=== PATIENT | female | born 1930 | race Caucasian/White ===

== ENCOUNTER 2016-11-06 10:54 | Emergency (ER) | payer OTHER, BC ==
[~2016-11-06] VITALS: Ht 152.4 cm; Wt 65.7 kg
[~2016-11-06 10:54] MED LIST: PRED1SUS3 OPR
[2016-11-06 10:59] VITALS: TEMP 36.6; Ht 152.4 cm; Wt 65.7 kg
--- NOTE | 2016-11-06 11:17 | EMERGENCY ROOM VISIT NOTE ---
History Report prepared by Adriel: Willow Andrews Under the Supervision of: Dr. Igor Moser M.D. First contact with patient: 11:08 Chief Complaint: ABDOMINAL PAIN Stated Complaint: PAIN IN UPPER ABDOMEN AREA History of Present Illness The patient is a 86 year old female who presents to the Emergency Room with complaints of improved right upper quadrant abdominal pain that began about an hour ago. Her daughter states that the patient was initially doubled over in pain. Since then, she has noticed a significant improvement in her pain. She reports belching a few times since her pain began. She feels that she may have had similar pain in the past, but not recently. The patient has a history of a hysterectomy. She has been moving her bowels and urinating normally. Denies leg pain or other complaints. Source of History: patient, family (daughter) Onset: 1 hour ago Position: abdomen (RUQ) Timing: other (improved) Note: Other symptoms: belching Review of Systems All systems have been listed, reviewed, and are negative other than those previously mentioned. Please see Additional Medical History Sheet. Past Medical & Surgical Medical Problems: (1) Hypertension Surgical Problems: (1) H/O: hysterectomy Family History Omitted secondary to age Social History Smoking Status: Never Smoker Marital Status: Housing Status: lives with family Occupation Status: retired Current/Historical Medications No Active Prescriptions or Reported Meds Allergies Coded Allergies: No Known Allergies (Unverified , 11/06/16) Physical Exam Vital Signs Date Time Temp Pulse Resp B/P Pulse Ox O2 Delivery O2 Flow Rate FiO2 11/06/16 12:57 71 20 139/83 96 Room Air 11/06/16 10:59 36.6 80 18 167/82 96 Room Air Physical Exam GENERAL: Patient awake, alert, oriented x 3. Patient follows commands. Patient does not appear toxic. Patient is adequately hydrated and well- nourished. SKIN: No erythema, pallor, cyanosis or rash HEENT: Normal head, pupils equal, reactive to light and accommodation. LUNGS: Clear to auscultation. No wheezes, no rales, no rhonchi. HEART: No murmurs. No gallops. No rubs ABDOMEN: No masses, no rebound, no hepatomegaly or splenomegaly. Hyperactive bowel sounds. Vague right upper quadrant tenderness. EXTREMITIES: No signs of trauma. No pedal or pretibial edema. No calf or thigh tenderness. NEUROLOGIC: Cranial nerves II-XII within normal limits. No gross motor sensory function deficits. Medical Decision & Procedures ER Provider Diagnostic Interpretation: Radiology results as stated below per my review and radiologist interpretation: KUB CLINICAL HISTORY: Right upper quadrant abdominal pain. FINDINGS: An AP supine abdominal radiograph is obtained. No prior studies are available for comparison at the time of dictation. There is a nonobstructed abdominal bowel gas pattern. There is moderate constipation as well as rectosigmoid fecal impaction. No evidence of intraperitoneal free air is seen on this supine view. Numerous surgical clips are present in the pelvis. There is advanced atherosclerotic calcification of the abdominal aorta. The skeletal structures are osteopenic. Advanced lumbosacral spondylosis and scoliosis are observed. The bony pelvis appears intact. IMPRESSION: Nonobstructed abdominal bowel gas pattern noting moderate constipation and rectosigmoid fecal impaction. Electronically signed by: Scott Domínguez M.D. 11/06/2016 12:18 PM Dictated Date/Time: 11/06/2016 12:17 PM Laboratory Results 11/06/16 11:33 Red Blood Count 4.21, Mean Corpuscular Volume 87.2, Mean Corpuscular Hemoglobin 30.6, Mean Corpuscular Hemoglobin Concent 35.1, Mean Platelet Volume 11.8, Neutrophils (%) (Auto) 79.1, Lymphocytes (%) (Auto) 12.5, Monocytes (%) (Auto) 7.2, Eosinophils (%) (Auto) 0.5, Basophils (%) (Auto) 0.5, Neutrophils # (Auto) 3.41, Lymphocytes # (Auto) 0.54, Monocytes # (Auto) 0.31, Eosinophils # (Auto) 0.02, Basophils # (Auto) 0.02 11/06/16 11:33 Test 11/06/16 11:33 11/06/16 13:45 White Blood Count 4.31 K/uL (4.8-10.8) Red Blood Count 4.21 M/uL (4.2-5.4) Hemoglobin 12.9 g/dL (12.0-16.0) Hematocrit 36.7 % (37-47) Mean Corpuscular Volume 87.2 fL (80-100) Mean Corpuscular Hemoglobin 30.6 pg (25-34) Mean Corpuscular Hemoglobin Concent 35.1 g/dl (32-36) Platelet Count 149 K/uL (130-400) Mean Platelet Volume 11.8 fL (7.4-10.4) Neutrophils (%) (Auto) 79.1 % Lymphocytes (%) (Auto) 12.5 % Monocytes (%) (Auto) 7.2 % Eosinophils (%) (Auto) 0.5 % Basophils (%) (Auto) 0.5 % Neutrophils # (Auto) 3.41 K/uL (1.4-6.5) Lymphocytes # (Auto) 0.54 K/uL (1.2-3.4) Monocytes # (Auto) 0.31 K/uL (0.11-0.59) Eosinophils # (Auto) 0.02 K/uL (0-0.5) Basophils # (Auto) 0.02 K/uL (0-0.2) RDW Standard Deviation 42.3 fL (36.4-46.3) RDW Coefficient of Variation 13.2 % (11.5-14.5) Immature Granulocyte % (Auto) 0.2 % Immature Granulocyte # (Auto) 0.01 K/uL (0.00-0.02) Anion Gap 5.0 mmol/L (3-11) Est Creatinine Clear Calc Drug Dose 38.7 ml/min Estimated GFR () 70.9 Estimated GFR (Non- 61.2 BUN/Creatinine Ratio 31.4 (10-20) Calcium Level 9.6 mg/dl (8.5-10.1) Total Bilirubin 1.1 mg/dl (0.2-1) Aspartate Amino Transf (AST/SGOT) 100 U/L (15-37) Alanine Aminotransferase (ALT/SGPT) 59 U/L (12-78) Alkaline Phosphatase 171 U/L (45-117) Total Protein 6.9 gm/dl (6.4-8.2) Albumin 3.8 gm/dl (3.4-5.0) Globulin 3.1 gm/dl (2.5-4.0) Albumin/Globulin Ratio 1.2 (0.9-2) Lipase 332 U/L (73-393) Urine Color YELLOW Urine Appearance CLEAR (CLEAR) Urine pH 6.5 (4.5-7.5) Urine Specific [place] 1.010 (1.000-1.030) Urine Protein NEG (NEG) Urine Glucose (UA) NEG (NEG) Urine Ketones NEG (NEG) Urine Occult Blood TRACE (NEG) Urine Nitrite NEG (NEG) Urine Bilirubin NEG (NEG) Urine Urobilinogen NEG (NEG) Urine Leukocyte Esterase NEG (NEG) Urine WBC (Auto) 0 /hpf (0-5) Urine RBC (Auto) 0-4 /hpf (0-4) Urine Hyaline Casts (Auto) 0 /lpf (0-5) Urine Epithelial Cells (Auto) 0-5 /lpf (0-5) Urine Bacteria (Auto) NEG (NEG) Laboratory results as stated above per my review. Medications Administered Medications (Trade) Dose Ordered Sig/Eddy Route Start Time Stop Time Status Last Admin Dose Admin Polyethylene (Miralax Powder Packet) 17 gm NOW ONCE PO 11/06/16 13:45 11/06/16 13:46 DC 11/06/16 14:07 17 GM ED Course 1107: Past medical records reviewed. The patient was evaluated in room C3. A complete history and physical examination was performed. 1332: I reassessed the patient. She was feeling much better. 1345: Ordered polyethylene 17 gm PO. 1408: Upon reevaluation, the patient appeared to have improvement of her symptoms. I discussed today's findings with the patient. She verbalized agreement of the treatment plan. The patient was discharged home. Medical Decision Nurses notes reviewed. Medical history sheet reviewed. Differential diagnosis includes but is not limited to: intestinal spasm, pancreatitis, peptic/gastric ulcer disease, gastroenteritis, cholelithiasis, cholecystitis. Multiple labs, urinalysis and imaging were obtained. Please see above. The patient has increased gas secondary to constipation. The initial clean-catch urine was contaminated and therefore a second catheterized urine was obtained which was clean. The patient was given 1 dose of MiraLAX. I do not believe she requires any further intervention. At time of discharge the patient felt significantly better. Impression Primary Impression: Constipation Scribe Attestation The scribe's documentation has been prepared under my direction and personally reviewed by me in its entirety. I confirm that the note above accurately reflects all work, treatment, procedures, and medical decision making performed by me. Departure Information Dispostion Home / Self-Care Prescriptions No Active Prescriptions or Reported Meds Referrals Raad Monge MD (PCP) Patient Instructions Constipation, My [facility] Additional Instructions Follow-up with your family physician in 2-3 days if pain is not completely resolved. Return here sooner if pain is getting worse.
[2016-11-06 11:54] LABS: BASO % 0.5 %; BASO ABS # 0.02 K/uL (0-0.2); COMPLETE YES; EOS % 0.5 %; HEMATOCRIT 36.7 % (37-47); IG% 0.2 %; LYMPH % 12.5 %; LYMPH ABS # 0.54 K/uL (1.2-3.4); MEAN CELL VOLUME 87.2 fL (80-100); MEAN CORPUSCULAR HEMOGLOBIN 30.6 pg (25-34); MEAN CORPUSCULAR HGB CONC 35.1 g/dl (32-36); MEAN PLATELET VOLUME 11.8 fL (7.4-10.4); MONO % 7.2 %; NEUT % 79.1 %; PLATELET COUNT 149 K/uL (130-400); RED BLOOD COUNT 4.21 M/uL (4.2-5.4); WHITE BLOOD COUNT 4.31 K/uL (4.8-10.8)
[2016-11-06 11:59] LABS: URINE APPEARANCE CLEAR (CLEAR); URINE BILIRUBIN NEG (NEG); URINE COLOR YELLOW; URINE EPITHELIAL CELL AUTO >30 /lpf (0-5); URINE NITRITE NEG (NEG); URINE PH 5.5 (4.5-7.5); URINE SPECIFIC GRAVITY 1.018 (1.000-1.030); UROBILINOGEN NEG (NEG); ZZUR CULT IF INDIC CLEAN CATCH NO
[2016-11-06 12:02] LABS: MANUAL MICROSCOPIC REQUIRED? NO; REVIEW REQ? NO
--- NOTE | 2016-11-06 12:20 | DIAGNOSTIC IMAGING REPORT ---
KUB CLINICAL HISTORY: Right upper quadrant abdominal pain. FINDINGS: An AP supine abdominal radiograph is obtained. No prior studies are available for comparison at the time of dictation. There is a nonobstructed abdominal bowel gas pattern. There is moderate constipation as well as rectosigmoid fecal impaction. No evidence of intraperitoneal free air is seen on this supine view. Numerous surgical clips are present in the pelvis. There is advanced atherosclerotic calcification of the abdominal aorta. The skeletal structures are osteopenic. Advanced lumbosacral spondylosis and scoliosis are observed. The bony pelvis appears intact. IMPRESSION: Nonobstructed abdominal bowel gas pattern noting moderate constipation and rectosigmoid fecal impaction. Electronically signed by: Scott Domínguez M.D. 11/06/2016 12:18 PM Dictated Date/Time: 11/06/2016 12:17 PM
[2016-11-06 12:29] LABS: BUN/CREATININE RATIO 31.4 (10-20); CALCIUM 9.6 mg/dl (8.5-10.1); CREATININE 0.85 mg/dl (0.60-1.20); POTASSIUM 3.7 mmol/L (3.5-5.1)
[2016-11-06 12:32] LABS: ALB/GLOB RATIO 1.2 (0.9-2)
[2016-11-06] MEDS ORDERED: POLYETHYLENE (MIRALAX) 17 GM PACK PO ONE (13:45)
[2016-11-06 14:05] LABS: URINE APPEARANCE CLEAR (CLEAR); URINE BILIRUBIN NEG (NEG); URINE COLOR YELLOW; URINE EPITHELIAL CELL AUTO 0-5 /lpf (0-5); URINE NITRITE NEG (NEG); URINE PH 6.5 (4.5-7.5); UROBILINOGEN NEG (NEG); ZZURINE CULT IF INDIC CATH NO
[2016-11-06 14:07] LABS: MANUAL MICROSCOPIC REQUIRED? NO; REVIEW REQ? NO
[2016-11-06 14:55] VITALS: BP 144/72; PULSE 69; O2SAT 96
== END 2016-11-06 14:55 | disposition home or self-care (01) ==
LOC: C.EDB 10:55 → C.EDC 14:55
DX: K59.00 Constipation, unspecified (principal); I10 Essential (primary) hypertension; Z90.710 Acquired absence of both cervix and uterus

== ENCOUNTER 2017-07-09 10:21 | Inpatient (IN) | payer OTHER, BC ==
[~2017-07-09] VITALS: Ht 160 cm; Wt 58.7 kg
[2017-07-09] MEDS ORDERED: SODIUM CHLORIDE 0.9% 1000ML 1,000 ML IV STA (10:30)
--- NOTE | 2017-07-09 10:57 | DIAGNOSTIC IMAGING REPORT ---
CHEST ONE VIEW PORTABLE CLINICAL HISTORY: Weakness COMPARISON STUDY: No previous studies for comparison. FINDINGS: The heart is borderline enlarged. There are low lung volumes. There is interstitial thickening, finding of uncertain chronicity. There is no lobar consolidation. There is a thoracolumbar scoliosis.[ IMPRESSION: Interstitial thickening, finding of uncertain chronicity. This could relate to mild pulmonary vascular congestion, or chronic interstitial lung disease. Electronically signed by: Krish Crane M.D. 07/09/2017 10:55 AM Dictated Date/Time: 07/09/2017 10:55 AM
[2017-07-09] MEDS ORDERED: AMOX500T PO (11:22)
[2017-07-09] MEDS ORDERED: GUAI400T44 PO (11:22)
[2017-07-09 11:36] LABS: BASO % 0.4 %; BASO ABS # 0.02 K/uL (0-0.2); EOS % 1.1 %; EOS ABS # 0.05 K/uL (0-0.5); HEMATOCRIT 31.8 % (37-47); IG# 0.01 K/uL (0.00-0.02); LYMPH % 10.6 %; LYMPH ABS # 0.48 K/uL (1.2-3.4); MEAN CELL VOLUME 87.6 fL (80-100); MEAN CORPUSCULAR HEMOGLOBIN 30.3 pg (25-34); MEAN CORPUSCULAR HGB CONC 34.6 g/dl (32-36); MEAN PLATELET VOLUME 12.3 fL (7.4-10.4); MONO % 6.9 %; MONO ABS # 0.31 K/uL (0.11-0.59); NEUT % 80.8 %; NEUT ABS # 3.65 K/uL (1.4-6.5); PLATELET COUNT 151 K/uL (130-400); RED CELL DISTRIBUTION WIDTH CV 13.4 % (11.5-14.5); RED CELL DISTRIBUTION WIDTH SD 43.1 fL (36.4-46.3); WHITE BLOOD COUNT 4.52 K/uL (4.8-10.8)
[2017-07-09 11:50] LABS: INR 1.1 (0.9-1.1); PTT PATIENT 23.2 SECONDS (21.0-31.0)
[2017-07-09 11:55] LABS: ALBUMIN 3.2 gm/dl (3.4-5.0); ALT/SGPT 20 U/L (12-78); AST/SGOT 19 U/L (15-37); BLOOD UREA NITROGEN 19 mg/dl (7-18); CALCIUM 9.1 mg/dl (8.5-10.1); CARBON DIOXIDE 29 mmol/L (21-32); GLUCOSE 101 mg/dl (70-99); LIPASE 248 U/L (73-393); POTASSIUM 2.9 mmol/L (3.5-5.1); SODIUM 138 mmol/L (136-145)
--- NOTE | 2017-07-09 11:57 | DIAGNOSTIC IMAGING REPORT ---
CT HEAD WITHOUT CONTRAST (CT) CLINICAL HISTORY: No onset weakness COMPARISON STUDY: No previous studies for comparison. TECHNIQUE: Axial CT of the brain is performed from the vertex to the skull base. IV contrast was not administered for this examination. A dose lowering technique was utilized adhering to the principles of ALARA. CT DOSE: 614.27 mGy.cm FINDINGS: No intra or extra-axial mass lesions are visualized. There is no CT evidence of acute cortical infarction. There is no evidence of midline shift. There is no acute hemorrhage. No calvarial fractures are visualized. There are patchy white matter hypodensities likely on a small vessel basis. There is no evidence of pathologic ventricular dilatation. There is no evidence of acute sinusitis IMPRESSION: No acute intracranial findings Electronically signed by: Krish Crane M.D. 07/09/2017 11:56 AM Dictated Date/Time: 07/09/2017 11:55 AM
[2017-07-09 12:06] LABS: ALKALINE PHOSPHATASE 113 U/L (45-117); TOTAL PROTEIN 6.2 gm/dl (6.4-8.2)
[2017-07-09] MEDS ORDERED: LEVAQUIN 500MG / 100ML D5W IV ONE (13:15)
[2017-07-09 13:48] LABS: BASO % 0.5 %; BASO ABS # 0.02 K/uL (0-0.2); EOS % 1.2 %; EOS ABS # 0.05 K/uL (0-0.5); HEMATOCRIT 29.8 % (37-47); HEMOGLOBIN 10.4 g/dL (12.0-16.0); IG# 0.02 K/uL (0.00-0.02); LYMPH % 12.2 %; LYMPH ABS # 0.51 K/uL (1.2-3.4); MEAN CELL VOLUME 87.6 fL (80-100); MEAN CORPUSCULAR HEMOGLOBIN 30.6 pg (25-34); MEAN CORPUSCULAR HGB CONC 34.9 g/dl (32-36); MONO % 6.5 %; MONO ABS # 0.27 K/uL (0.11-0.59); NEUT % 79.1 %; NEUT ABS # 3.31 K/uL (1.4-6.5); PLATELET COUNT 137 K/uL (130-400); RED CELL DISTRIBUTION WIDTH CV 13.5 % (11.5-14.5); WHITE BLOOD COUNT 4.18 K/uL (4.8-10.8)
[2017-07-09 13:57] LABS: INR 1.1 (0.9-1.1); PTT PATIENT 22.1 SECONDS (21.0-31.0)
[2017-07-09] MEDS ORDERED: POTASSIUM CHLORIDE 10 MEQ TABCR PO STA (14:19)
[2017-07-09] MEDS ORDERED: ALUMINUM/MAGNESIUM/SIMETH (MAALOX MAX) 30 ML UDC PO PRN (15:00)
[2017-07-09] MEDS ORDERED: ACETAMINOPHEN 325 MG TAB PO PRN (15:00)
--- NOTE | 2017-07-09 16:00 | NUR ---
A: Patient arrived to room 452-2 at this time via litter from the ED. Patient with severe generalized weakness, max two assist to ambulate to the bed. Patient is extremely ZUNI, oriented times two. No c/o pain, saline lock right hand. Daughter at bedside, code word and fall agreement completed. Oriented to hospital environment, call vasquez within reach; bed alarm on for safety. Will continue to monitor.
--- NOTE | 2017-07-09 16:09 | EMERGENCY ROOM VISIT NOTE ---
History Report prepared by Adriel: Zoran Vargas Under the Supervision of: Dr. Deven Hutchinson D.O. First contact with patient: 10:24 Stated Complaint: weakness History of Present Illness The patient is a 87 year old female who presents to the Emergency Room by EMS with complaints of persistent generalized weakness beginning today. Per EMS, EMS was called by the patient's this morning due to her inability to get around the house. They note that the patient has been on Amoxicillin for the past 2-3 weeks. Family also notes that she has been confused recently. Admit that she has been having a productive cough and that the reason she has been on amoxicillin. Since this started she has been becoming progressively weaker. The patient denies focal weakness, urinary symptoms, chest pain, SOB, abdominal pain, nausea, or vomiting. Patient did have for the past 3 days to loose bowel movements per day. Source of History: patient, EMS Onset: Today Position: other (generalized) Quality: other (weakness) Timing: other (persistent) Associated Symptoms: No fevers, No chest pain, No SOB, No nausea, No vomiting, No abdominal pain, No diarrhea, No urinary symptoms Review of Systems See HPI for pertinent positives & negatives. A total of 10 systems reviewed and were otherwise negative. Past Medical & Surgical Medical Problems: (1) Generalized weakness (2) Hypertension (3) Hypokalemia Surgical Problems: (1) H/O: hysterectomy Family History Omitted secondary to age Social History Smoking Status: Never Smoker Marital Status: Housing Status: lives with family Occupation Status: retired Current/Historical Medications Scheduled Amoxicillin & Pot Clavulanate (Augmentin 500MG), 500 MG PO BID Guaifenesin (Guaifenesin), 1 TAB PO UD Allergies Coded Allergies: No Known Allergies (Unverified , 07/09/17) Physical Exam Vital Signs Date Time Temp Pulse Resp B/P (MAP) Pulse Ox O2 Delivery O2 Flow Rate FiO2 07/09/17 15:33 140/106 07/09/17 15:17 79 30 07/09/17 14:47 80 29 07/09/17 14:31 81 21 156/95 95 Room Air 07/09/17 14:17 84 23 95 07/09/17 14:01 156/95 07/09/17 13:17 74 24 99 07/09/17 13:01 158/83 07/09/17 13:00 74 18 158/83 98 Room Air 07/09/17 12:47 71 25 100 07/09/17 12:17 70 25 96 07/09/17 12:12 142/88 07/09/17 12:08 70 07/09/17 11:26 152/94 07/09/17 11:25 153/87 07/09/17 11:25 71 153/87 96 75 152/94 07/09/17 11:23 157/94 07/09/17 11:21 72 27 07/09/17 10:46 96 Room Air 07/09/17 10:41 36.8 75 20 150/95 96 Room Air 07/09/17 10:35 150/95 Physical Exam GENERAL: Sitting up in bed, alert, well appearing, well-kept, well nourished, no distress, non-toxic EYE EXAM: normal conjunctiva. PERRL and EOM's intact. OROPHARYNX: no exudate, no erythema, lips, buccal mucosa, and tongue normal and mucous membranes are moist NECK: supple, no nuchal rigidity, no adenopathy, non-tender LUNGS: Clear to auscultation. Normal chest wall mechanics HEART: no murmurs, S1 normal and S2 normal ABDOMEN: abdomen soft, non-tender, normo-active bowel sounds, no masses, no rebound or guarding. BACK: Back is symmetrical on inspection and there is no deformity, no midline tenderness, no CVA tenderness. SKIN: no rashes and no bruising UPPER EXTREMITIES: upper extremities are grossly normal. LOWER EXTREMITIES: No pitting edema. NEURO EXAM: Awake, alert, oriented to person, but not place or date. Cranial nerves II-XII intact, normal speech, no weakness of arms, no weakness of legs. No drift. Finger to nose intact. Gross sensation intact. Medical Decision & Procedures ER Provider Diagnostic Interpretation: Radiology results as stated below per my review and the radiologist's interpretation: CT HEAD WITHOUT CONTRAST (CT) FINDINGS: No intra or extra-axial mass lesions are visualized. There is no CT evidence of acute cortical infarction. There is no evidence of midline shift. There is no acute hemorrhage. No calvarial fractures are visualized. There are patchy white matter hypodensities likely on a small vessel basis. There is no evidence of pathologic ventricular dilatation. There is no evidence of acute sinusitis IMPRESSION: No acute intracranial findings Electronically signed by: Krish Crane M.D. 07/09/2017 11:56 AM CHEST ONE VIEW PORTABLE FINDINGS: The heart is borderline enlarged. There are low lung volumes. There is interstitial thickening, finding of uncertain chronicity. There is no lobar consolidation. There is a thoracolumbar scoliosis.[ IMPRESSION: Interstitial thickening, finding of uncertain chronicity. This could relate to mild pulmonary vascular congestion, or chronic interstitial lung disease. Electronically signed by: Krish Crane M.D. 07/09/2017 10:55 AM Laboratory Results 07/09/17 13:37 Red Blood Count 3.40, Mean Corpuscular Volume 87.6, Mean Corpuscular Hemoglobin 30.6, Mean Corpuscular Hemoglobin Concent 34.9, Mean Platelet Volume 12.0, Neutrophils (%) (Auto) 79.1, Lymphocytes (%) (Auto) 12.2, Monocytes (%) (Auto) 6.5, Eosinophils (%) (Auto) 1.2, Basophils (%) (Auto) 0.5, Neutrophils # (Auto) 3.31, Lymphocytes # (Auto) 0.51, Monocytes # (Auto) 0.27, Eosinophils # (Auto) 0.05, Basophils # (Auto) 0.02 07/09/17 11:10 Test 07/09/17 10:30 07/09/17 11:10 07/09/17 11:22 07/09/17 13:37 Anion Gap 4.0 mmol/L (3-11) Est Creatinine Clear Calc Drug Dose 28.7 ml/min Estimated GFR () 51.5 Estimated GFR (Non- 44.5 BUN/Creatinine Ratio 16.9 (10-20) Calcium Level 9.1 mg/dl (8.5-10.1) Total Bilirubin 0.9 mg/dl (0.2-1) Direct Bilirubin 0.2 mg/dl (0-0.2) Aspartate Amino Transf (AST/SGOT) 19 U/L (15-37) Alanine Aminotransferase (ALT/SGPT) 20 U/L (12-78) Alkaline Phosphatase 113 U/L (45-117) Troponin I < 0.015 ng/ml (0-0.045) Total Protein 6.2 gm/dl (6.4-8.2) Albumin 3.2 gm/dl (3.4-5.0) Lipase 248 U/L (73-393) Thyroid Stimulating Hormone (TSH) 2.180 uIu/ml (0.300-4.500) Bedside Glucose 98 mg/dl (70-90) White Blood Count 4.18 K/uL (4.8-10.8) Red Blood Count 3.40 M/uL (4.2-5.4) Hemoglobin 10.4 g/dL (12.0-16.0) Hematocrit 29.8 % (37-47) Mean Corpuscular Volume 87.6 fL (80-100) Mean Corpuscular Hemoglobin 30.6 pg (25-34) Mean Corpuscular Hemoglobin Concent 34.9 g/dl (32-36) Platelet Count 137 K/uL (130-400) Mean Platelet Volume 12.0 fL (7.4-10.4) Neutrophils (%) (Auto) 79.1 % Lymphocytes (%) (Auto) 12.2 % Monocytes (%) (Auto) 6.5 % Eosinophils (%) (Auto) 1.2 % Basophils (%) (Auto) 0.5 % Neutrophils # (Auto) 3.31 K/uL (1.4-6.5) Lymphocytes # (Auto) 0.51 K/uL (1.2-3.4) Monocytes # (Auto) 0.27 K/uL (0.11-0.59) Eosinophils # (Auto) 0.05 K/uL (0-0.5) Basophils # (Auto) 0.02 K/uL (0-0.2) RDW Standard Deviation 43.0 fL (36.4-46.3) RDW Coefficient of Variation 13.5 % (11.5-14.5) Immature Granulocyte % (Auto) 0.5 % Immature Granulocyte # (Auto) 0.02 K/uL (0.00-0.02) Prothrombin Time 11.3 SECONDS (9.0-12.0) Prothromb Time International Ratio 1.1 (0.9-1.1) Activated Partial Thromboplast Time 22.1 SECONDS (21.0-31.0) Partial Thromboplastin Ratio 0.9 Test 07/09/17 15:29 Laboratory results per my review. Medications Administered Medications (Trade) Dose Ordered Sig/Eddy Route Start Time Stop Time Status Last Admin Dose Admin Sodium Chloride 1,000 ml @ 999 mls/hr Q1H1M STAT IV 07/09/17 10:30 07/09/17 11:30 DC 07/09/17 11:28 999 MLS/HR Levofloxacin (Levaquin / D5W) 500 mg NOW ONCE IV 07/09/17 13:15 07/09/17 13:16 DC 07/09/17 13:15 500 MG Potassium Chloride (Klor-Con M10) 40 meq NOW STAT PO 07/09/17 14:19 07/09/17 14:20 DC 07/09/17 14:31 40 MEQ ECG Indication: weakness Rate (beats per minute): 72 Rhythm: sinus rhythm Findings: ST depression (Anterior), T-wave inversion (septal and anterior), left axis deviation, no ectopy Comparison ECG Date: no prior available ED Course ED COURSE: Vital signs were reviewed and showed hypertension The patients medical record was reviewed The above diagnostic studies were performed and reviewed. ED treatments and interventions as stated above. 1025: The patient was evaluated in room C1B. A complete history and physical examination was performed. 1030: Ordered Sodium Chloride 1000 ml @ 999 mls/hr IV. 1057: The patient's has arrived. I spoke with him regarding the patient' s situation. Per , the patient has been confused over the past week since her coughing began and she started taking antibiotics. He states that the patient has been very weak, and has not been able to take care of herself. 1310: I spoke with the patient's daughter. She adds that the patient has had diarrhea for the past few days, and has had around two episodes per day. 1315: Ordered Levaquin / D5W 500 mg IV. 1419: Ordered Klor-Con M10 40 meq PO. 1352: Upon reevaluation, the patient is resting comfortably. I discussed my findings with the patient and she understands and agrees with the treatment plan. Based on the patients age, coexisting illnesses, exam and lab findings the decision to treat as an outpatient was made. The patient remained stable while under my care. The patient appeared well at the time of discharge. Medical Decision Differential Diagnosis includes but is not limited to dehydration, stroke, anemia, hypoglycemia, hyponatremia, hypernatremia, urinary tract infection, pneumonia, bronchitis, sepsis, gastroenteritis, additional abdominal pathology, metabolic abnormalities and infections. Patient is an 87-year-old female who presents to ER for confusion associated with URI symptoms. Patient has been on amoxicillin without improvement. She's been unable to ambulate throughout the house her . Patient is no other complaints. EKG with out anything to compare to shows ST-T wave depressions and flipped T waves. CBC was unremarkable. BMP shows mild hypokalemia which was repleted. LFTs, bilirubin and troponin was negative. TSH normal. UA was pending upon admission. Chest x-ray and CT head shows no acute pathology. She was given IV Levaquin. She is admitted to internal medicine following bolus normal saline as well. Medication Reconcilliation Current Medication List: was personally reviewed by me Blood Pressure Screening Patient's blood pressure: Elevated blood pressure Blood pressure disposition: Elevated BP felt to be situational Consults Time Called: 1350 Consulting Physician: Nia Ocampo Returned Call: 1352 I reviewed the patient's case with Nia Casey will evaluate the patient for further management. Impression Primary Impression: Altered mental status Additional Impressions: Bronchitis Ambulatory dysfunction Hypokalemia Scribe Attestation The scribe's documentation has been prepared under my direction and personally reviewed by me in its entirety. I confirm that the note above accurately reflects all work, treatment, procedures, and medical decision making performed by me. Departure Information Dispostion Being Evaluated By Hospitalist Referrals Raad Monge MD (PCP) Problem Qualifiers Primary Impression: Altered mental status Altered mental status type: unspecified Qualified Codes: R41.82 - Altered mental status, unspecified
--- NOTE | 2017-07-09 16:27 | DIAGNOSTIC IMAGING REPORT ---
KUB CLINICAL HISTORY: 87 years-old Female presenting with N/V/D. ABDOMINAL DISCOMFORT. TECHNIQUE: Single supine view of the abdomen was obtained. COMPARISON: 11/06/2016. FINDINGS: Numerous surgical clips noted in the mid abdomen as well as the bilateral pelvic sidewalls. Atherosclerosis of the tortuous abdominal aorta. Splenic arterial calcification also noted. Mild gaseous distention of large bowel. No commencing evidence of bowel obstruction. No gross pneumoperitoneum. Allowing for bowel gas and stool, no gross evidence of calcifications project over the kidneys. Hyperdense linear focus projecting over the right upper pole may relate to atherosclerosis or bowel. Degenerative changes of the spine. Bandlike opacity at the left lung base likely scarring or atelectasis. IMPRESSION: 1. Extensive atherosclerotic disease. 2. No bowel obstruction. Electronically signed by: Kirt Smith M.D. 07/09/2017 4:26 PM Dictated Date/Time: 07/09/2017 4:23 PM
[2017-07-09 16:33] LABS: INFLUENZA A PCR Neg for Influ A (NEG); INFLUENZA B PCR Neg for Influ B (NEG)
--- NOTE | 2017-07-09 16:35 | HISTORY & PHYSICAL EXAMINATION ---
DATE OF ADMISSION: 07/09/2017 CHIEF COMPLAINT: Generalized weakness and abdominal discomfort. HISTORY OF PRESENT ILLNESS: This is an 87-year-old female with past medical history significant for cervical cancer. No other significant past medical history presents with generalized weakness and some nausea and diarrhea going for last few days, patient was recently treated for bronchitis with 10 days of antibiotics. Prior to that she was doing okay, she was able to ambulate fine but since last several days, she is feeling weak and tired, loss of appetite, she is not able to eat anything and she has few episodes of diarrhea and complained of nausea a couple of days ago and feeling generalized weak and tired and having difficulty ambulating, so the family brought him to the hospital. She had an episode of vomiting in the ER after taking the potassium pills. Hemodynamically stable. Denies any headaches or blurred visions. Has some dizziness. No sore throat, no difficulty swallowing. No runny nose. Denies any chest pain, no shortness of breath, has some occasional dry cough, which got better after treating with antibiotics. Denies any abdominal pain and has few episodes of diarrhea. Normal bladder movements. No fever, chills. Currently, resting comfortably and hemodynamically stable. ALLERGIES: No known drug allergies. PAST MEDICAL HISTORY: As mentioned above. PAST SURGICAL HISTORY: Hysterectomy. MEDICATIONS: None. FAMILY HISTORY: Significant for Alzheimer dementia and prostate cancer in father. REVIEW OF SYMPTOMS: As per HPI. Rest of review of symptoms negative. PHYSICAL EXAMINATION: GENERAL: The patient is old and frail, not in distress. VITAL SIGNS: Temperature 36.8, pulse 81, respiration rate 21, blood pressure 156/95, oxygen 95% on room air. HEENT: No pallor, no icterus. Pupils equal, round and reactive to light. NECK: No JVD, no neck masses, no carotid bruits. CARDIOVASCULAR: S1, S2 heard, regular rate and rhythm, no murmur, no gallop. RESPIRATORY SYSTEM: Normal AP diameter. No accessory muscle use. No wheezing, no crackles. ABDOMEN: Soft, bowel sounds present. Nontender. No distention, no guarding, no rigidity. CENTRAL NERVOUS SYSTEM: Cranial nerves II-XII grossly intact. Nonfocal. EXTREMITIES: No edema, no erythema. LABORATORY STUDIES: WBC 4.18, hemoglobin 10.4, hematocrit 29.8, and platelets 137. PT 11.3, INR 1.1, APTT 22.1. Sodium 130, potassium 2.9, chloride 105, bicarbonate 27, BUN 19, creatinine 1.1, serum glucose 101, calcium 9.1. Total bilirubin 0.9, direct bilirubin 0.2, AST 19, ALT 20, alkaline phosphatase 113. Troponin 1 less than 0.015. TSH 2.1, lipase 248. PT 11.3, INR 1.1. Urinalysis pending. IMAGING DATA: CT of the head, no acute intracranial findings seen. Chest x-ray - interstitial thickening, finding of uncertain chronicity, this could be related to mild pulmonary vascular congestion, chronic interstitial lung disease. EKG - normal sinus rhythm with rate in the 70s, questionable T-wave inversions in lateral leads. ASSESSMENT AND PLAN: This is an 87-year-old female presents with generalized weakness, some nausea, vomiting and diarrhea. 1. Generalized weakness, nausea, vomiting, diarrhea after starting with a treatment for bronchitis with antibiotics, could be gastroenteritis. Will do the KUB, will follow the stool cultures and a stool for C. diff. Her weakness could be from hypokalemia, will replace the potassium. Will be placed on full liquid diet for now and monitor on the medical floor. PT/OT when more stable. 2. Questionable echocardiogram changes. We will follow the echocardiogram. 3. Deep venous thrombosis prophylaxis, sequential compression devices and heparin subQ. DISPOSITION: Admit to medical floor. Expect PT, OT prior to discharge. Social Service to help with discharge planning. CHEN
[2017-07-09 16:44] VITALS: O2SAT 95; Ht 160 cm; Wt 58.7 kg
[2017-07-09] MEDS: POTASSIUM CHLR 10 MEQ / WTR 10 MEQ in PREMIXED WATER 100 ML IV SCH ×2 (16:56→19:25)
[2017-07-09] MEDS: D5NSS + 20MEQ KCL 1,000 ML IV SCH (16:56)
[2017-07-09 17:03] VITALS: BP 161/92; PULSE 79; TEMP 37; O2SAT 98
[2017-07-09] MEDS: ONDANSETRON INJ 2 MG/ML 2 ML VIAL IV PRN (18:40)
[2017-07-09] MEDS: HEPARIN SOD 5000 UNIT/0.5 ML CARP SQ SCH (20:58)
[2017-07-09 23:40] VITALS: BP 133/77; PULSE 73; TEMP 37.2; O2SAT 93
[2017-07-10 07:55] VITALS: BP 146/77; PULSE 69; TEMP 36.8; O2SAT 90
--- NOTE | 2017-07-10 08:28 | Clinical Documentation Query ---
CLINICAL DOCUMENTATION QUERY QUERY 1 OF 2 87 year old female who presents to the Emergency Room by EMS with complaints of persistent generalized weakness beginning today. In your clinical opinion is this patient being managed for: ( ) Encephalopathy ( X ) Not Agree ( ) Other explanation of clinical findings (Please Explain) ( ) Unable to determine (Please Define) ( ) Need to Discuss The medical record reflects the following clinical findings, treatment, and risk factors. Clinical Indicators: Altered mental status, recent confusion, weakness, diarrhea and vomiting Treatment: CT head, IV hydration, IV Levaquin Risk Factors: Age, weakness, vomiting and diarrhea QUERY 2 OF 2 In your clinical opinion is this patient being managed for: ( X ) Acute kidney failure ( ) Not Agree ( ) Other explanation of clinical findings (Please Explain) ( ) Unable to determine (Please Define) ( ) Need to Discuss The medical record reflects the following clinical findings, treatment, and risk factors. Clinical Indicators: Creatinine 1.10 trending up from baseline of 0.80, GFR 44.5 trending down from 66.8 baseline Treatment: IV hydration Risk Factors: Age, HTN, weakness Please clarify and document your clinical opinion in the progress notes and discharge summary. Terms such as "probable", "suspected", "likely", "questionable", "possible", or "still to be ruled out" are acceptable. IF IN AGREEMENT, YOU MUST DOCUMENT ABOVE DIAGNOSTIC STATEMENT IN DAILY PROGRESS NOTES AND DISCHARGE SUMMARY. This document is not part of the patient's record. Thank You, Brisa Huffman RN [phone]
[2017-07-10] MEDS: HEPARIN SOD 5000 UNIT/0.5 ML CARP SQ SCH ×2 (08:30→20:13)
[2017-07-10] MEDS: D5NSS + 20MEQ KCL 1,000 ML IV SCH ×2 (08:31→16:05)
[2017-07-10 08:56] LABS: HEMATOCRIT 29.7 % (37-47); HEMOGLOBIN 10.2 g/dL (12.0-16.0); MEAN CELL VOLUME 89.2 fL (80-100); MEAN CORPUSCULAR HEMOGLOBIN 30.6 pg (25-34); MEAN CORPUSCULAR HGB CONC 34.3 g/dl (32-36); RED CELL DISTRIBUTION WIDTH CV 13.5 % (11.5-14.5); RED CELL DISTRIBUTION WIDTH SD 43.7 fL (36.4-46.3); WHITE BLOOD COUNT 3.39 K/uL (4.8-10.8)
[2017-07-10 09:09] LABS: PLATELET COUNT 121 K/uL (130-400)
[2017-07-10 09:11] LABS: BASO % 0.6 %; BASO ABS # 0.02 K/uL (0-0.2); EOS % 0.9 %; EOS ABS # 0.03 K/uL (0-0.5); IG# 0.01 K/uL (0.00-0.02); LYMPH % 12.4 %; LYMPH ABS # 0.42 K/uL (1.2-3.4); MONO % 6.8 %; MONO ABS # 0.23 K/uL (0.11-0.59); NEUT ABS # 2.68 K/uL (1.4-6.5)
[2017-07-10 09:46] LABS: CALCIUM 8.8 mg/dl (8.5-10.1); CREATININE 0.89 mg/dl (0.60-1.20); POTASSIUM 3.5 mmol/L (3.5-5.1)
--- NOTE | 2017-07-10 10:30 | ECHOCARDIOGRAM REPORT ---
*NOTICE TO RECEIVING REPUBLICAN AGENCY This information is strictly Confidential and protected under [place] law. [place] law prohibits you from making any further disclosure of this information unless further disclosure is expressly permitted by the written consent of the person to whom it pertains or is authorized by law. A general authorization for the release of medical or other information is not sufficient for this purpose. Hospital accepts no responsibility if the information is made available to any other person, INCLUDING THE PATIENT. Interpretation Summary * Name: RAS PRABHAKAR Study Date: 07/10/2017 07:13 AM BP: 161/92 mmHg * Patient Location: [id number] HR: 74 * : 1930 (M/d/yyyy) Gender: Female Height: 63 in * Age: 87 yrs Ethnicity: CA Weight: 129 lb * Ordering Physician: Bill Duarte * Referring Physician: UNKNOWN * Performed By: Genesis Barker RDCS * * Reason For Study: EKG CHANGES * BSA: 1.6 m2 * -- Conclusions -- * Normal LV chamber size with mild concentric LVH. * Normal LV systolic function, EF 60-65%. * No segmental left ventricular wall motion abnormalities are noted. * Grade I diastolic dysfunction. * Mild mitral regurgitation. * Mild tricuspid regurgitation. * Mild left atrial enlargement. Procedure Details * A complete two-dimensional transthoracic echocardiogram was performed (2D, M-mode, Doppler and color flow Doppler). Left Ventricle * The left ventricle is normal in size. * There is mild concentric left ventricular hypertrophy. * Ejection Fraction = 60-65%. * Left ventricular systolic function is normal. * No segmental left ventricular wall motion abnormalities are noted. * The left ventricular wall motion is normal. Right Ventricle * The right ventricular cavity size is normal (basal dimension <4.2 cm in right ventricular apical 4-chamber view). * The right ventricular systolic function is normal as assessed by tricuspid annular plane systolic excursion (TAPSE) (normal >1.5 cm). Atria * The left atrium is mildly dilated. * Right atrial size is normal. * No ASD detected; PFO is not assessed. Mitral Valve * The mitral valve anatomy is normal. * There is no mitral valve stenosis. * There is mild mitral regurgitation. Tricuspid Valve * The tricuspid valve anatomy is normal. * There is no tricuspid stenosis. * There is mild tricuspid regurgitation. Aortic Valve * The aortic valve is not well visualized. * No hemodynamically significant valvular aortic stenosis. * There is no significant aortic regurgitation. Pulmonic Valve * The pulmonary valve is not well seen, but the Doppler examination is normal without significant regurgitation or stenosis. Great Vessels * The aortic root is normal size. Pericardium/Pleural * There is no pericardial effusion. Left Ventricular Diastolic Function * Grade I diastolic dysfunction, (abnormal relaxation pattern). MMode 2D Measurements and Calculations IVSd 1.3 cm IVSs 1.8 cm LVIDd 3.5 cm LVIDs 2.4 cm LVPWd 1.2 cm LVPWs 1.7 cm IVS/LVPW 1.0 FS 33.0 % EDV(Teich) 51.5 ml ESV(Teich) 19.3 ml EF(Teich) 62.6 % EDV(cubed) 43.5 ml ESV(cubed) 13.1 ml EF(cubed) 69.9 % % IVS thick 40.8 % % LVPW thick 41.8 % LV mass(C)d 143.1 grams LV mass(C)dI 89.2 grams/m\S\2 LV mass(C)s 156.1 grams LV mass(C)sI 97.3 grams/m\S\2 SV(Teich) 32.2 ml SI(Teich) 20.1 ml/m\S\2 SV(cubed) 30.4 ml SI(cubed) 19.0 ml/m\S\2 Ao root diam 3.2 cm Ao root area 8.1 cm\S\2 LA dimension 4.2 cm LA/Ao 1.3 LVAd ap4 22.8 cm\S\2 LVLd ap4 8.4 cm EDV(MOD-sp4) 51.3 ml EDV(sp4-el) 52.6 ml LVAs ap4 12.0 cm\S\2 LVLs ap4 6.9 cm ESV(MOD-sp4) 18.9 ml ESV(sp4-el) 17.9 ml EF(MOD-sp4) 63.2 % EF(sp4-el) 66.0 % LVAd ap2 22.2 cm\S\2 LVLd ap2 7.9 cm EDV(MOD-sp2) 51.5 ml EDV(sp2-el) 52.6 ml LVAs ap2 12.5 cm\S\2 LVLs ap2 7.4 cm ESV(MOD-sp2) 19.4 ml ESV(sp2-el) 18.0 ml EF(MOD-sp2) 62.2 % EF(sp2-el) 65.7 % LVLd %diff -5.44 % EDV(MOD-bp) 52.8 ml LVLs %diff 6.7 % ESV(MOD-bp) 19.7 ml EF(MOD-bp) 62.7 % SV(MOD-sp4) 32.4 ml SI(MOD-sp4) 20.2 ml/m\S\2 SV(MOD-sp2) 32.0 ml SI(MOD-sp2) 20.0 ml/m\S\2 SV(MOD-bp) 33.1 ml SI(MOD-bp) 20.6 ml/m\S\2 SV(sp4-el) 34.7 ml SI(sp4-el) 21.6 ml/m\S\2 SV(sp2-el) 34.6 ml SI(sp2-el) 21.5 ml/m\S\2 Doppler Measurements and Calculations MV E max marcio 88.3 cm/sec MV A max macrio 97.0 cm/sec MV E/A 0.91 MV dec time 0.21 sec Ao V2 max 134.8 cm/sec Ao max PG 7.3 mmHg Ao max PG (full) 3.4 mmHg LV V1 max PG 3.9 mmHg LV V1 max 98.4 cm/sec TR max marcio 271.7 cm/sec
--- NOTE | 2017-07-10 11:45 | NUR ---
Case Management- Met with pt and spouse to explain role of case work aide and discharge planning. Pt seemed to be forgetful throughout conversation, introducing her a few times. Spouse reports he is not noticing any issues/changes to her baseline mental status. Pt lives with spouse in a single story home, no stairs to enter. At baseline she ambulates without a device although they do have a walker in the home, she is independent with ADLs. Over the past several days pt has had a decline in her level of function but reports he as able to manage the increased assistance she required. At this time pt would like to return home at discharge but they are agreeable to considering any recommendations from the MD or therapy. Therapy orders obtained, will appreciate recommendations. Will continue to follow.
[2017-07-10 12:14] VITALS: BP_SYST 131; BP_SYST 148; BP_SYST 150; BP_DIAS 76; BP_DIAS 85; BP_DIAS 92; PULSE 66; PULSE 70; PULSE 74
[2017-07-10] MEDS ORDERED: PANTOprazole SOD 40 MG TAB PO STA (15:28)
[2017-07-10] MEDS ORDERED: BISACODYL 5 MG TABEC PO ONE (15:30)
--- NOTE | 2017-07-10 15:37 | Progress Note ---
Subjective Date of Service: Jul 10, 2017. Subjective Pt evaluation today including: conversation w/ patient, physical exam, lab review, review of studies, review of inpatient medication list Saw/examined the patient in room 452 No problems/issues to note today She is up in a seat; daughter and at bedside Daughter tells me she picked at her lunch, but did not finish it - at baseline, she has a good appetite and this is unusual for her +burping, belching breathing is better, no chest pain Problem List Medical Problems: (1) Altered mental status Status: Acute (2) Ambulatory dysfunction Status: Acute (3) Bronchitis Status: Acute (4) Constipation Status: Acute (5) Epistaxis Status: Acute (6) Hypertension Status: Acute Review of Systems Constitutional: No fever, No chills Respiratory: No cough, No sputum, No wheezing, No shortness of breath, No dyspnea on exertion Cardiac: No chest pain, No edema, No palpitations Abdomen: + problem reported (+excessive belching), No pain, No nausea, No vomiting, No diarrhea (resolved), No constipation, No GI bleeding Female : No dysuria, No urinary frequency Heme: No abnormal bleeding/bruising Medications Current Inpatient Medications Medications (Trade) Dose Ordered Sig/Eddy Route Start Time Stop Time Status Last Admin Dose Admin Acetaminophen (Tylenol Tab) 650 mg Q4H PRN PO 07/09/17 15:00 08/08/17 14:59 Al Hydrox/Mg Hydrox/Simethicone (Maalox Max Susp) 15 ml Q4H PRN PO 07/09/17 15:00 08/08/17 14:59 07/09/17 18:41 15 ML Ondansetron HCl (Zofran Inj) 4 mg Q6H PRN IV 07/09/17 15:00 08/08/17 14:59 07/09/17 18:40 4 MG Heparin Sodium (Porcine) (Heparin Sq 5000 Unit/0.5ml) 5,000 unit Q12 SQ 07/09/17 21:00 08/08/17 20:59 07/10/17 08:30 5,000 UNIT Potassium Chloride/Dextrose/ Sod Cl 1,000 ml @ 80 mls/hr [id number] IV 07/09/17 16:30 08/08/17 16:29 07/10/17 08:31 80 MLS/HR Pantoprazole Sodium (Protonix Tab) 40 mg QAM PO 07/11/17 08:00 08/10/17 07:59 Objective Vital Signs Date Time Temp Pulse Resp B/P (MAP) Pulse Ox O2 Delivery O2 Flow Rate FiO2 07/10/17 12:14 66 150/76 (100) 70 131/92 (105) 74 148/85 (106) 07/10/17 07:55 36.8 69 16 146/77 (100) 90 Room Air 07/10/17 07:10 Room Air 07/10/17 00:00 Room Air 07/09/17 23:40 37.2 73 16 133/77 (95) 93 Room Air 07/09/17 17:03 37.0 79 18 161/92 (115) 98 Room Air 07/09/17 16:44 95 Room Air 07/09/17 15:33 140/106 Physical Exam General Appearance: no apparent distress Respiratory/Chest: chest non-tender, lungs clear, normal breath sounds, no respiratory distress, no accessory muscle use Cardiovascular: regular rate, rhythm, no edema, no murmur Abdomen: normal bowel sounds, non tender, soft Laboratory Results Last 24 Hours Test 07/09/17 15:29 07/09/17 17:41 07/10/17 07:42 Influenza Type A (RT-PCR) Neg for Influ A Influenza Type B (RT-PCR) Neg for Influ B Urine Color YELLOW Urine Appearance CLEAR Urine pH 5.5 Urine Specific [place] 1.013 Urine Protein 1+ Urine Glucose (UA) NEG Urine Ketones TRACE Urine Occult Blood TRACE Urine Nitrite NEG Urine Bilirubin NEG Urine Urobilinogen NEG Urine Leukocyte Esterase TRACE Urine WBC (Auto) 1-5 /hpf Urine RBC (Auto) 0-4 /hpf Urine Hyaline Casts (Auto) 1-5 /lpf Urine Epithelial Cells (Auto) >30 /lpf Urine Bacteria (Auto) NEG White Blood Count 3.39 K/uL Red Blood Count 3.33 M/uL Hemoglobin 10.2 g/dL Hematocrit 29.7 % Mean Corpuscular Volume 89.2 fL Mean Corpuscular Hemoglobin 30.6 pg Mean Corpuscular Hemoglobin Concent 34.3 g/dl Platelet Count 121 K/uL Mean Platelet Volume 12.0 fL Neutrophils (%) (Auto) 79.0 % Lymphocytes (%) (Auto) 12.4 % Monocytes (%) (Auto) 6.8 % Eosinophils (%) (Auto) 0.9 % Basophils (%) (Auto) 0.6 % Neutrophils # (Auto) 2.68 K/uL Lymphocytes # (Auto) 0.42 K/uL Monocytes # (Auto) 0.23 K/uL Eosinophils # (Auto) 0.03 K/uL Basophils # (Auto) 0.02 K/uL RDW Standard Deviation 43.7 fL RDW Coefficient of Variation 13.5 % Immature Granulocyte % (Auto) 0.3 % Immature Granulocyte # (Auto) 0.01 K/uL Platelet Estimate DECREASED Giant Platelets 1+ Sodium Level 142 mmol/L Potassium Level 3.5 mmol/L Chloride Level 110 mmol/L Carbon Dioxide Level 27 mmol/L Anion Gap 5.0 mmol/L Blood Urea Nitrogen 14 mg/dl Creatinine 0.89 mg/dl Est Creatinine Clear Calc Drug Dose 35.4 ml/min Estimated GFR () 66.6 Estimated GFR (Non- 57.5 BUN/Creatinine Ratio 15.2 Random Glucose 108 mg/dl Calcium Level 8.8 mg/dl Magnesium Level 1.9 mg/dl Assessment and Plan This is an 87 year old female with no significant PMH with recent bronchitis, presents with generalized weakness and decreased PO intake Decreased PO intake possible gastritis secondary to recent abx. use? will try some carafate and Protonix patient has not had a BM in two days, she usually goes daily; will try one dose of Dulcolax check C. diff monitor her PO intake Generalized Weakness I believe this is likely due to her decreased PO intake will order for PT/OT potassium replaced gentle IV hydration DVT ppx subq heparin FULL CODE
[2017-07-10 16:02] VITALS: BP 136/84; PULSE 74; TEMP 37.1; O2SAT 94
[2017-07-10] MEDS: SUCRALFATE 1 GM/10 ML UDC PO SCH ×2 (16:05→20:14)
--- NOTE | 2017-07-10 18:37 | NUR ---
Notified Dr. Goddard that patient was still on full liquid diet. Denies N/V. Also that family was interested in GI consult. No orders placed at this time.
[2017-07-10] MEDS: ONDANSETRON INJ 2 MG/ML 2 ML VIAL IV PRN (20:43)
--- NOTE | 2017-07-10 23:00 | NUR ---
ID: Pt has been resting comfortably in bed. Had one episode of emesis. Was given Zofran and nausea and vomiting has subsided. VSS. Pt is alert to person and place. D5NS K 20meq at 80ml/hr in right forearm. Bed alarm on for safety. Hourly rounding maintained. Continuing to monitor
[2017-07-10 23:56] VITALS: BP 153/85; PULSE 82; TEMP 37.1; O2SAT 96
[2017-07-11 07:18] VITALS: BP 153/90; PULSE 79; TEMP 37; O2SAT 91
[2017-07-11] MEDS: SUCRALFATE 1 GM/10 ML UDC PO SCH ×4 (07:49→20:39)
[2017-07-11] MEDS: PANTOprazole SOD 40 MG TAB PO SCH (07:49)
[2017-07-11 08:56] LABS: BASO % 0.2 %; BASO ABS # 0.01 K/uL (0-0.2); EOS % 1.1 %; EOS ABS # 0.05 K/uL (0-0.5); HEMATOCRIT 32.2 % (37-47); HEMOGLOBIN 10.9 g/dL (12.0-16.0); IG# 0.03 K/uL (0.00-0.02); LYMPH % 11.4 %; MEAN CELL VOLUME 89.9 fL (80-100); MEAN CORPUSCULAR HEMOGLOBIN 30.4 pg (25-34); MEAN CORPUSCULAR HGB CONC 33.9 g/dl (32-36); MEAN PLATELET VOLUME 12.1 fL (7.4-10.4); MONO % 5.5 %; MONO ABS # 0.24 K/uL (0.11-0.59); NEUT % 81.1 %; NEUT ABS # 3.57 K/uL (1.4-6.5); PLATELET COUNT 149 K/uL (130-400); RED CELL DISTRIBUTION WIDTH CV 13.6 % (11.5-14.5); RED CELL DISTRIBUTION WIDTH SD 44.6 fL (36.4-46.3)
[2017-07-11] MEDS: D5NSS + 20MEQ KCL 1,000 ML IV SCH (09:10)
[2017-07-11] MEDS: HEPARIN SOD 5000 UNIT/0.5 ML CARP SQ SCH ×2 (09:14→20:43)
[2017-07-11 09:27] LABS: CALCIUM 9.2 mg/dl (8.5-10.1); CREATININE 0.89 mg/dl (0.60-1.20); POTASSIUM 3.6 mmol/L (3.5-5.1)
[2017-07-11] MEDS ORDERED: GI COCKTAIL PO PRN (11:30)
[2017-07-11] MEDS: BISACODYL 5 MG TABEC PO ONE ×2 (12:00→12:15)
--- NOTE | 2017-07-11 12:27 | Gastrointestinal Consultation ---
Gastrointestinal Consultation Date of Consultation: Jul 11, 2017 Attending Physician: Vasiliy Goddard Consulting Physician: Nina Cunha Reason for Consultation: Early satiety, decreased PO intake History of Present Illness Patient is a 87 year old female w PMHx of cervical ca s/p hysterectomy >20 yrs ago, who was brought to ED by for weakness, diarrhea, nausea. She was treated w Augment for bronchitis over a week ago. Just completed meds last . During the treatment course pt reports "stomach doesn't feel right", and having more reflux symptoms. Usually takes Mylanta OTC to help settle down the heartburn. Developed loose stools which is resolving now. Denies any abd pain, cramping, just feels mostly food and doesn't want to eat as much. She denies any blood in stool. She did have a fall in house a few days ago. At baseline, does have some memory loss, but had been able to ambulate by herself w /o assistive devices around the house. currently is also having a cold. Upon evaluation in ED, labs showed mild anemia, . CMP showed hypokalemia 2.9, repleted, now 3.6. Renal function, LFTs, Lipase normal. Head CT negative, CXR showed chronic interstitial disease, KUB showed non obstructive bowel pattern. Last BM 2 days ago, she was given Dulcolax x 1 dose today. [facility] ([facility]) reports mom did eat cream of wheat , not much yogurt due to dislike of flavor. She did have some N/V after given potassium pills in ED, and also when tried on Carafate yesterday. Hx of EGD > 10 yrs ago in [place], [facility] reports + Hpylori, treated and cleared. 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 Family would like to defer endoscopic workup unless emergency. Past Medical/Surgical History Medical Problems: (1) Altered mental status Status: Acute (2) Ambulatory dysfunction Status: Acute (3) Bronchitis Status: Acute (4) Constipation Status: Acute (5) Epistaxis Status: Acute (6) Hypertension Status: Acute Past Medical History: See above. Past Surgical History: Hysterectomy ? Cholecystectomy Foot bunion Family History Omitted secondary to age Social History Smoking Status: Never Smoker Marital Status: Housing Status: lives with family Occupation Status: retired Allergies Coded Allergies: No Known Allergies (Unverified , 07/09/17) Current Medications Home Meds and Scripts Medications Dose Route/Sig Max Daily Dose Days Date Category Guaifenesin Unknown Strength Tab 1 Tab PO UD 07/09/17 Reported Augmentin 500MG (Amoxicillin & Pot Clavulanate) 1 Tab Tab 500 Mg PO BID 10 07/09/17 Reported Review of Systems Constitutional: + weakness, No fever, No chills, No weight loss Respiratory: No cough, No shortness of breath Cardiac: No chest pain Abdomen: + see HPI, + nausea, No pain, No vomiting Physical Exam Date Time Temp Pulse Resp B/P (MAP) Pulse Ox O2 Delivery O2 Flow Rate FiO2 07/11/17 07:20 Room Air 07/11/17 07:18 37.0 79 16 153/90 (111) 91 Room Air 07/11/17 00:00 Room Air 07/10/17 23:56 37.1 82 18 153/85 (107) 96 Room Air 07/10/17 19:00 Room Air 07/10/17 16:02 37.1 74 16 136/84 (101) 94 Room Air 07/10/17 16:02 94 Room Air General Appearance: WD/WN, no apparent distress Eyes: normal inspection, PERRL, EOMI Neck: supple, no JVD, trachea midline Respiratory/Chest: no respiratory distress, no accessory muscle use, + decreased breath sounds Cardiovascular: regular rate, rhythm, no gallop, no murmur Abdomen: normal bowel sounds, non tender, + distended (mild) Extremities: normal inspection, no pedal edema, no calf tenderness Neurologic/Psych: alert, + depressed affect, + disoriented Skin: normal color, no jaundice, no rash Laboratory Results Last 24 Hours Test 07/11/17 08:31 White Blood Count 4.40 K/uL Red Blood Count 3.58 M/uL Hemoglobin 10.9 g/dL Hematocrit 32.2 % Mean Corpuscular Volume 89.9 fL Mean Corpuscular Hemoglobin 30.4 pg Mean Corpuscular Hemoglobin Concent 33.9 g/dl Platelet Count 149 K/uL Mean Platelet Volume 12.1 fL Neutrophils (%) (Auto) 81.1 % Lymphocytes (%) (Auto) 11.4 % Monocytes (%) (Auto) 5.5 % Eosinophils (%) (Auto) 1.1 % Basophils (%) (Auto) 0.2 % Neutrophils # (Auto) 3.57 K/uL Lymphocytes # (Auto) 0.50 K/uL Monocytes # (Auto) 0.24 K/uL Eosinophils # (Auto) 0.05 K/uL Basophils # (Auto) 0.01 K/uL RDW Standard Deviation 44.6 fL RDW Coefficient of Variation 13.6 % Immature Granulocyte % (Auto) 0.7 % Immature Granulocyte # (Auto) 0.03 K/uL Sodium Level 142 mmol/L Potassium Level 3.6 mmol/L Chloride Level 111 mmol/L Carbon Dioxide Level 24 mmol/L Anion Gap 7.0 mmol/L Blood Urea Nitrogen 8 mg/dl Creatinine 0.89 mg/dl Est Creatinine Clear Calc Drug Dose 35.4 ml/min Estimated GFR () 66.6 Estimated GFR (Non- 57.5 BUN/Creatinine Ratio 8.5 Random Glucose 120 mg/dl Calcium Level 9.2 mg/dl Magnesium Level 1.8 mg/dl Impression Patient is a 87 year old female w decreased appetite, increased reflux symptoms and early satiety. Has underlying reflux/heartburn, increased symptoms recently. Hx of Hpylori, treated >10 yrs ago. She started getting more nausea, diarrhea since being on Augmentin for bronchitis recently. Diarrhea resolving. PLANS: - Obtain upper GI series, repeat KUB - Keep Protonix 40mg daily - GI cocktail TID prn GI upset - Obtain stool for Hpylori, if diarrhea, check for Cdiff - FL diet, may advance as tolerated. Will add Boost (chocolate per pt's request ) w meals. - Will avoid endoscopic workup per family's request. I performed a history and physical examination of the patient, including specifically on physical exam - abdomen is soft.I have discussed the patient's management with Sandy. Please refer to the [employer]'s note for the documented findings and plan of care. Patient with dyspepsia. No significant abdominal pain. Family declined any endoscopic work up. Alternatively will test and treat for H.Pylori, get Upper Gi series and start on PPI.
[2017-07-11] MEDS: BOOST VANILLA OR BOOST GLUCOSE CONTROL CHOCOLATE PO SCH ×2 (12:56→17:41)
[2017-07-11] MEDS ORDERED: ALUMINUM/MAGNESIUM SUSP 72 ML, LIDOCAINE HCL 2% VISCOUS SOLN 24 ML, BARCODE IDENTIFIER ... PO PRN ×2 (13:15)
--- NOTE | 2017-07-11 13:27 | Progress Note ---
Subjective Date of Service: Jul 11, 2017. Subjective Pt evaluation today including: conversation w/ patient, conversation w/ family , physical exam, lab review, review of studies, conversation w/ artist consultant, review of inpatient medication list Saw/examined the patient in room 452 She ate part of her breakfast As per daughter, she is still having "belching" episodes and feels full much quicker than she normally does No diarrhea. Problem List Medical Problems: (1) Altered mental status Status: Acute (2) Ambulatory dysfunction Status: Acute (3) Bronchitis Status: Acute (4) Constipation Status: Acute (5) Epistaxis Status: Acute (6) Hypertension Status: Acute Review of Systems Constitutional: No fever, No chills Respiratory: No shortness of breath Cardiac: No chest pain Abdomen: + problem reported (early fullness), No pain, No nausea, No vomiting, No diarrhea, No constipation Medications Current Inpatient Medications Medications (Trade) Dose Ordered Sig/Eddy Route Start Time Stop Time Status Last Admin Dose Admin Acetaminophen (Tylenol Tab) 650 mg Q4H PRN PO 07/09/17 15:00 08/08/17 14:59 Al Hydrox/Mg Hydrox/Simethicone (Maalox Max Susp) 15 ml Q4H PRN PO 07/09/17 15:00 08/08/17 14:59 07/09/17 18:41 15 ML Ondansetron HCl (Zofran Inj) 4 mg Q6H PRN IV 07/09/17 15:00 08/08/17 14:59 07/10/17 20:43 4 MG Heparin Sodium (Porcine) (Heparin Sq 5000 Unit/0.5ml) 5,000 unit Q12 SQ 07/09/17 21:00 08/08/17 20:59 07/11/17 09:14 5,000 UNIT Potassium Chloride/Dextrose/ Sod Cl 1,000 ml @ 80 mls/hr [id number] IV 07/09/17 16:30 08/08/17 16:29 07/11/17 09:10 80 MLS/HR Pantoprazole Sodium (Protonix Tab) 40 mg QAM PO 07/11/17 08:00 08/10/17 07:59 07/11/17 07:49 40 MG Sucralfate (Carafate Susp) 1 gm QID PO 07/10/17 17:00 08/09/17 16:59 07/11/17 07:49 1 GM Enteral Nutritional Formula (Boost) 1 can TIDM PO 07/11/17 13:30 08/10/17 13:29 Al Hydroxide/Mg Hydroxide/ Lidocaine HCl/ Barcode TID PRN PO 07/11/17 13:15 08/10/17 13:14 Objective Vital Signs Date Time Temp Pulse Resp B/P (MAP) Pulse Ox O2 Delivery O2 Flow Rate FiO2 07/11/17 07:20 Room Air 07/11/17 07:18 37.0 79 16 153/90 (111) 91 Room Air 07/11/17 00:00 Room Air 07/10/17 23:56 37.1 82 18 153/85 (107) 96 Room Air 07/10/17 19:00 Room Air 07/10/17 16:02 37.1 74 16 136/84 (101) 94 Room Air 07/10/17 16:02 94 Room Air Physical Exam General Appearance: no apparent distress Respiratory/Chest: chest non-tender, lungs clear, normal breath sounds, no respiratory distress, no accessory muscle use Cardiovascular: regular rate, rhythm, no edema, no murmur Abdomen: normal bowel sounds, non tender, soft Laboratory Results Last 24 Hours Test 07/11/17 00:00 07/11/17 08:31 Stool Occult Blood NEGATIVE White Blood Count 4.40 K/uL Red Blood Count 3.58 M/uL Hemoglobin 10.9 g/dL Hematocrit 32.2 % Mean Corpuscular Volume 89.9 fL Mean Corpuscular Hemoglobin 30.4 pg Mean Corpuscular Hemoglobin Concent 33.9 g/dl Platelet Count 149 K/uL Mean Platelet Volume 12.1 fL Neutrophils (%) (Auto) 81.1 % Lymphocytes (%) (Auto) 11.4 % Monocytes (%) (Auto) 5.5 % Eosinophils (%) (Auto) 1.1 % Basophils (%) (Auto) 0.2 % Neutrophils # (Auto) 3.57 K/uL Lymphocytes # (Auto) 0.50 K/uL Monocytes # (Auto) 0.24 K/uL Eosinophils # (Auto) 0.05 K/uL Basophils # (Auto) 0.01 K/uL RDW Standard Deviation 44.6 fL RDW Coefficient of Variation 13.6 % Immature Granulocyte % (Auto) 0.7 % Immature Granulocyte # (Auto) 0.03 K/uL Sodium Level 142 mmol/L Potassium Level 3.6 mmol/L Chloride Level 111 mmol/L Carbon Dioxide Level 24 mmol/L Anion Gap 7.0 mmol/L Blood Urea Nitrogen 8 mg/dl Creatinine 0.89 mg/dl Est Creatinine Clear Calc Drug Dose 35.4 ml/min Estimated GFR () 66.6 Estimated GFR (Non- 57.5 BUN/Creatinine Ratio 8.5 Random Glucose 120 mg/dl Calcium Level 9.2 mg/dl Magnesium Level 1.8 mg/dl Assessment and Plan This is an 87 year old female with no significant PMH with recent bronchitis, presents with generalized weakness and decreased PO intake Decreased PO intake 07/11 appreciate GI input will check an upper GI series, and repeat KUB GI cocktail added continue Protonix and Carafate 07/10 possible gastritis secondary to recent abx. use? will try some Carafate and Protonix patient has not had a BM in two days, she usually goes daily; will try one dose of Dulcolax check C. diff monitor her PO intake Generalized Weakness I believe this is likely due to her decreased PO intake will order for PT/OT potassium replaced gentle IV hydration DVT ppx subq heparin FULL CODE
--- NOTE | 2017-07-11 14:23 | DIAGNOSTIC IMAGING REPORT ---
GI SERIES W/O KUB CLINICAL HISTORY: early satiety, decreased po intake COMPARISON STUDY: FLUOROSCOPY TIME: 2.5 minutes. NUMBER OF FLUOROSCOPIC IMAGES: 23 FINDINGS: The study is limited from a technical standpoint. The stomach was not well-distended. No esophageal masses or ulcerations are visualized. 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 Irregularity of the greater curvature or early images appears to resolve on later images. This likely represents early filling artifact. There are no definite gastric masses. There is no gastric outlet obstruction. No duodenal bulb ulcers are visualized. The ligament Treitz is located in the normal anatomical position IMPRESSION: 1. Technically limited study 2. Disordered esophageal motility 3. No evidence of gastric outlet obstruction. 4. No pathologic masses identified given the limitations of the examination Electronically signed by: Krish Crane M.D. 07/11/2017 2:21 PM Dictated Date/Time: 07/11/2017 2:19 PM
--- NOTE | 2017-07-11 14:24 | DIAGNOSTIC IMAGING REPORT ---
KUB CLINICAL HISTORY: Abdominal distention. COMPARISON STUDY: KUB July 09, 2017. FINDINGS: Pelvic surgical clips are noted. There is mild levoscoliosis of the lumbar spine. There are suspected small bilateral pleural effusions. There is scattered small and large bowel gas. There is no convincing evidence for a bowel obstruction. IMPRESSION: No evidence for a bowel obstruction. Electronically signed by: Ian Gomez M.D. 07/11/2017 2:22 PM Dictated Date/Time: 07/11/2017 2:21 PM
[2017-07-11] MEDS ORDERED: NURSING VERBAL MED ORDER ONE ×2 (14:30)
--- NOTE | 2017-07-11 14:38 | NUR ---
Pt seen due to PO supplement notification. Please refer to linked assessment Addendum: 07/11/17 at [address] Amended: Links added.
[2017-07-11 16:02] VITALS: O2SAT 94
[2017-07-11 16:03] VITALS: BP 137/84; PULSE 99; TEMP 36.3; O2SAT 96
[2017-07-11 23:48] VITALS: BP 161/82; PULSE 84; TEMP 36.6; O2SAT 91
--- NOTE | 2017-07-12 04:11 | NUR ---
ID: Patient alert; oriented to person. VSS. No c/o pain. O2 sats stable on RA. No N/V. OOB with assist of 1 & walker to BR. D/C plan & date uncertain @ this time. Will continue to monitor.
[2017-07-12 07:35] VITALS: BP 164/89; PULSE 74; TEMP 36.7; O2SAT 94
[2017-07-12] MEDS: SUCRALFATE 1 GM/10 ML UDC PO SCH ×2 (08:28→11:22)
[2017-07-12] MEDS: PANTOprazole SOD 40 MG TAB PO SCH (08:28)
[2017-07-12] MEDS: BOOST VANILLA OR BOOST GLUCOSE CONTROL CHOCOLATE PO SCH ×2 (08:28→11:49)
[2017-07-12] MEDS: HEPARIN SOD 5000 UNIT/0.5 ML CARP SQ SCH (08:39)
[2017-07-12 09:00] LABS: BASO % 0.8 %; BASO ABS # 0.03 K/uL (0-0.2); EOS % 1.3 %; EOS ABS # 0.05 K/uL (0-0.5); HEMATOCRIT 31.1 % (37-47); HEMOGLOBIN 10.6 g/dL (12.0-16.0); IG# 0.01 K/uL (0.00-0.02); LYMPH % 11.2 %; LYMPH ABS # 0.43 K/uL (1.2-3.4); MEAN CELL VOLUME 90.1 fL (80-100); MEAN CORPUSCULAR HEMOGLOBIN 30.7 pg (25-34); MEAN CORPUSCULAR HGB CONC 34.1 g/dl (32-36); MEAN PLATELET VOLUME 11.8 fL (7.4-10.4); MONO % 6.8 %; MONO ABS # 0.26 K/uL (0.11-0.59); NEUT % 79.6 %; NEUT ABS # 3.05 K/uL (1.4-6.5); PLATELET COUNT 131 K/uL (130-400); RED CELL DISTRIBUTION WIDTH CV 13.7 % (11.5-14.5); RED CELL DISTRIBUTION WIDTH SD 44.8 fL (36.4-46.3); WHITE BLOOD COUNT 3.83 K/uL (4.8-10.8)
[2017-07-12 09:24] LABS: CALCIUM 9.1 mg/dl (8.5-10.1); CREATININE 0.89 mg/dl (0.60-1.20); POTASSIUM 3.4 mmol/L (3.5-5.1)
--- NOTE | 2017-07-12 10:02 | Gastroenterology Progress Note ---
Progress Note Date of Service: Jul 12, 2017 Subjective Pt evaluation today including: conversation w/ patient, conversation w/ family , physical exam, chart review, lab review, review of inpatient medication list Pt appears more alert and conversing more today. Denies much heartburn symptoms , denies any abd pain. Likes Boost. No N/V. Review of Systems Constitutional: No fever, No chills Respiratory: No cough, No shortness of breath Cardiac: No chest pain Abdomen: No pain, No nausea, No vomiting Medications Current Inpatient Medications Medications (Trade) Dose Ordered Sig/Eddy Route Start Time Stop Time Status Last Admin Dose Admin Acetaminophen (Tylenol Tab) 650 mg Q4H PRN PO 07/09/17 15:00 08/08/17 14:59 Al Hydrox/Mg Hydrox/Simethicone (Maalox Max Susp) 15 ml Q4H PRN PO 07/09/17 15:00 08/08/17 14:59 07/09/17 18:41 15 ML Ondansetron HCl (Zofran Inj) 4 mg Q6H PRN IV 07/09/17 15:00 08/08/17 14:59 07/10/17 20:43 4 MG Heparin Sodium (Porcine) (Heparin Sq 5000 Unit/0.5ml) 5,000 unit Q12 SQ 07/09/17 21:00 08/08/17 20:59 07/12/17 08:39 5,000 UNIT Pantoprazole Sodium (Protonix Tab) 40 mg QAM PO 07/11/17 08:00 08/10/17 07:59 07/12/17 08:28 40 MG Sucralfate (Carafate Susp) 1 gm QID PO 07/10/17 17:00 08/09/17 16:59 07/12/17 08:28 1 GM Enteral Nutritional Formula (Boost) 1 can TIDM PO 07/11/17 13:30 08/10/17 13:29 07/12/17 08:28 1 CAN Al Hydroxide/Mg Hydroxide/ Lidocaine HCl/ Barcode TID PRN PO 07/11/17 13:15 08/10/17 13:14 Objective Vital Signs Date Time Temp Pulse Resp B/P (MAP) Pulse Ox O2 Delivery O2 Flow Rate FiO2 07/12/17 08:30 Room Air 07/12/17 07:35 36.7 74 16 164/89 (114) 94 Room Air 07/12/17 00:10 Room Air 07/11/17 23:48 36.6 84 18 161/82 (108) 91 Room Air 07/11/17 16:03 36.3 99 18 137/84 (101) 96 Room Air 07/11/17 16:02 94 Room Air Physical Exam General Appearance: WD/WN, no apparent distress Eyes: normal inspection, PERRL, EOMI Neck: supple, no JVD, trachea midline Respiratory/Chest: normal breath sounds, no respiratory distress, no accessory muscle use Cardiovascular: regular rate, rhythm, no gallop, no murmur Abdomen: normal bowel sounds, non tender, soft Extremities: normal inspection, no pedal edema, no calf tenderness Neurologic/Psych: alert, normal mood/affect, + disoriented Skin: normal color, no jaundice, no rash Laboratory Results Last 24 Hours Test 07/12/17 08:00 White Blood Count 3.83 K/uL Red Blood Count 3.45 M/uL Hemoglobin 10.6 g/dL Hematocrit 31.1 % Mean Corpuscular Volume 90.1 fL Mean Corpuscular Hemoglobin 30.7 pg Mean Corpuscular Hemoglobin Concent 34.1 g/dl Platelet Count 131 K/uL Mean Platelet Volume 11.8 fL Neutrophils (%) (Auto) 79.6 % Lymphocytes (%) (Auto) 11.2 % Monocytes (%) (Auto) 6.8 % Eosinophils (%) (Auto) 1.3 % Basophils (%) (Auto) 0.8 % Neutrophils # (Auto) 3.05 K/uL Lymphocytes # (Auto) 0.43 K/uL Monocytes # (Auto) 0.26 K/uL Eosinophils # (Auto) 0.05 K/uL Basophils # (Auto) 0.03 K/uL RDW Standard Deviation 44.8 fL RDW Coefficient of Variation 13.7 % Immature Granulocyte % (Auto) 0.3 % Immature Granulocyte # (Auto) 0.01 K/uL Sodium Level 142 mmol/L Potassium Level 3.4 mmol/L Chloride Level 110 mmol/L Carbon Dioxide Level 27 mmol/L Anion Gap 6.0 mmol/L Blood Urea Nitrogen 8 mg/dl Creatinine 0.89 mg/dl Est Creatinine Clear Calc Drug Dose 35.4 ml/min Estimated GFR () 66.6 Estimated GFR (Non- 57.5 BUN/Creatinine Ratio 9.1 Random Glucose 93 mg/dl Calcium Level 9.1 mg/dl Magnesium Level 1.8 mg/dl Assessment and Plan Patient is a 87 year old female w decreased appetite, increased reflux symptoms and early satiety. Has underlying reflux/heartburn, increased symptoms recently. Hx of Hpylori, treated >10 yrs ago. She started getting more nausea, diarrhea since being on Augmentin for bronchitis recently. Diarrhea resolving. Cdiff negative, Hpylori stool pending. Repeat KUB w scattered bowel gas w/o obstruction. Upper GI series w signs of esophageal dysmotility, but no obvious masses or ulcers. She is feeling better w GI cocktail and Maalox. PLANS: - Keep Protonix 40mg daily - GI cocktail TID prn GI upset - F/U on stool Hpylori - FL diet, may advance as tolerated. Will add Boost (chocolate per pt's request ) w meals. - Will avoid endoscopic workup per family's request. - Recommend she be on bowel regimen to prevent constipation (I started her on Colace 100mg BID). I also spoke w RN and pt's dght to make sure pt is sitting upright when eating, may alternate warm liquid and solids, also try "slippery diet" that would be easier to swallow. - No new GI plans at this time; will watch peripherally. Call if new questions/ concerns arise. I performed a history and physical examination of the patient, including specifically on physical exam - abdomen is soft.I have discussed the patient's management with Sandy. Please refer to the MAGAZINE PUBLISHER's note for the documented findings and plan of care. Likely GERD. PO PPI trial for 2 months only. Laxatives PRN Recall GI if any questions.
[2017-07-12] MEDS ORDERED: CLC100 PO (13:51)
[2017-07-12] MEDS ORDERED: PANT1TAB4 PO (13:51)
[2017-07-12] MEDS ORDERED: ALUMINUM/MAGNESIUM/SIMETH (MAALOX MAX) 30 ML UDC PO STA (13:52)
--- NOTE | 2017-07-12 14:01 | NUR ---
Case Management- Reviewed therapy notes, PT/OT feel pt would be ok to return home with 24hr supervision. Met with pt and spouse, reports he is with pt at all times and he is planning on taking her home at discharge. They are agreeable to home health services, [facility] used [facility] the past and would like to use them again. If [facility] is unable to accept the referral pt is agreeable to using [facility]. Referral information given to [facility]. Will continue to follow.
--- NOTE | 2017-07-12 15:14 | Progress Note ---
Subjective Date of Service: Jul 12, 2017. Problem List Medical Problems: (1) Altered mental status Status: Acute (2) Ambulatory dysfunction Status: Acute (3) Bronchitis Status: Acute (4) Constipation Status: Acute (5) Epistaxis Status: Acute (6) Hypertension Status: Acute Objective Vital Signs Date Time Temp Pulse Resp B/P (MAP) Pulse Ox O2 Delivery O2 Flow Rate FiO2 07/12/17 08:30 Room Air 07/12/17 07:35 36.7 74 16 164/89 (114) 94 Room Air 07/12/17 00:10 Room Air 07/11/17 23:48 36.6 84 18 161/82 (108) 91 Room Air 07/11/17 16:03 36.3 99 18 137/84 (101) 96 Room Air 07/11/17 16:02 94 Room Air Laboratory Results Last 24 Hours Test 07/12/17 08:00 White Blood Count 3.83 K/uL Red Blood Count 3.45 M/uL Hemoglobin 10.6 g/dL Hematocrit 31.1 % Mean Corpuscular Volume 90.1 fL Mean Corpuscular Hemoglobin 30.7 pg Mean Corpuscular Hemoglobin Concent 34.1 g/dl Platelet Count 131 K/uL Mean Platelet Volume 11.8 fL Neutrophils (%) (Auto) 79.6 % Lymphocytes (%) (Auto) 11.2 % Monocytes (%) (Auto) 6.8 % Eosinophils (%) (Auto) 1.3 % Basophils (%) (Auto) 0.8 % Neutrophils # (Auto) 3.05 K/uL Lymphocytes # (Auto) 0.43 K/uL Monocytes # (Auto) 0.26 K/uL Eosinophils # (Auto) 0.05 K/uL Basophils # (Auto) 0.03 K/uL RDW Standard Deviation 44.8 fL RDW Coefficient of Variation 13.7 % Immature Granulocyte % (Auto) 0.3 % Immature Granulocyte # (Auto) 0.01 K/uL Sodium Level 142 mmol/L Potassium Level 3.4 mmol/L Chloride Level 110 mmol/L Carbon Dioxide Level 27 mmol/L Anion Gap 6.0 mmol/L Blood Urea Nitrogen 8 mg/dl Creatinine 0.89 mg/dl Est Creatinine Clear Calc Drug Dose 35.4 ml/min Estimated GFR () 66.6 Estimated GFR (Non- 57.5 BUN/Creatinine Ratio 9.1 Random Glucose 93 mg/dl Calcium Level 9.1 mg/dl Magnesium Level 1.8 mg/dl Assessment and Plan This is an 87 year old female with no significant PMH with recent bronchitis, presents with generalized weakness and decreased PO intake Decreased PO intake Dyspepsia/Gastritis 07/12 will d/c on Protonix she can have colace for constipation following diet instructions: FULLY UPRIGHT for all meals and for 20-30 minutes after intake; keep head of bed elevated AT LEAST 30 degrees at all times--even sleep -Alternate solids with liquids and eat small amounts more frequently instead of three large meals; avoid icy cold beverages and drink warm beverages with meals -Give medications in a carrier (eg., puding, apple sauce, yogurt, etc.) -SLIPPERY DIET: choose loose, moist, slippery foods; avoid dry, thick, doughy foods; use condiments liberally to make foods slippery 07/11 appreciate GI input will check an upper GI series, and repeat KUB GI cocktail added continue Protonix and Carafate 07/10 possible gastritis secondary to recent abx. use? will try some Carafate and Protonix patient has not had a BM in two days, she usually goes daily; will try one dose of Dulcolax check C. diff monitor her PO intake Generalized Weakness I believe this is likely due to her decreased PO intake will order for PT/OT potassium replaced gentle IV hydration Acute Kidney Injury - resolved DVT ppx subq heparin FULL CODE
--- NOTE | 2017-07-12 15:16 | Discharge Instructions ---
Discharge Instructions Date of Service Jul 12, 2017. Admission Reason for Admission: Generalized Weakness, Hypokalemia Discharge Discharge Diagnosis / Problem: Decreased PO intake, Dyspepsia, possible Gastritis Discharge Goals Goal(s): Decrease discomfort, Improve function, Diagnostic testing, Therapeutic intervention Activity Recommendations Activity Limitations: resume your previous activity . Instructions / Follow-Up Instructions / Follow-Up Please follow-up with your primary care physician in 1-2 weeks * You will be discharged on Protonix * You can take over the counter Maalox * Colace is for your constipation For your diet; please use the following instructions: * FULLY UPRIGHT for all meals and for 20-30 minutes after intake; keep head of bed elevated AT LEAST 30 degrees at all times--even sleep -Alternate solids with liquids and eat small amounts more frequently instead of three large meals; avoid icy cold beverages and drink warm beverages with meals -Give medications in a carrier (eg., pudding, apple sauce, yogurt, etc.) -SLIPPERY DIET: choose loose, moist, slippery foods; avoid dry, thick, doughy foods; use condiments liberally to make foods slippery Current Hospital Diet Patient's current hospital diet: Regular Diet Discharge Diet Recommended Diet: Regular Diet Pending Studies Studies pending at discharge: no Medical Emergencies . Who to Call and When: Medical Emergencies: If at any time you feel your situation is an emergency, please call 911 immediately. . Non-Emergent Contact Non-Emergency issues call your: Primary Care Provider . . "Provider Documentation" section prepared by Vasiliy Goddard. . VTE Core Measure Inpt VTE Proph given/why not?: Unfractionated heparin SQ
--- NOTE | 2017-07-12 15:25 | Discharge Summary ---
Discharge Summary Date of Service Jul 12, 2017. Discharge Summary Admission Date: Jul 09, 2017 at 14:52 Discharge Date: Jul 12, 2017 Discharge Disposition: Home with services Principal Diagnosis: Decreased PO intake Dyspepsia Constipation Generalized Weakness Medication Reconciliation New Medications: Docusate Sodium (Docusate Sodium) 100 Mg Cap 100 MG PO BID for 30 Days, #60 CAP Pantoprazole (Pantoprazole Sodium) 40 Mg Tab 40 MG PO QAM for 30 Days, #30 TAB Continued Medications: Guaifenesin (Guaifenesin) Unknown Strength Tab 1 TAB PO UD Discontinued Medications: Amoxicillin & Pot Clavulanate (Augmentin 500MG) 1 Tab Tab 500 MG PO BID for 10 Days Admission Information Physical Exam (per Admitting): DATE OF ADMISSION: 07/09/2017 CHIEF COMPLAINT: Generalized weakness and abdominal discomfort. HISTORY OF PRESENT ILLNESS: This is an 87-year-old female with past medical history significant for cervical cancer. No other significant past medical history presents with generalized weakness and some nausea and diarrhea going for last few days, patient was recently treated for bronchitis with 10 days of antibiotics. Prior to that she was doing okay, she was able to ambulate fine but since last several days, she is feeling weak and tired, loss of appetite, she is not able to eat anything and she has few episodes of diarrhea and complained of nausea a couple of days ago and feeling generalized weak and tired and having difficulty ambulating, so the family brought him to the hospital. She had an episode of vomiting in the ER after taking the potassium pills. Hemodynamically stable. Denies any headaches or blurred visions. Has some dizziness. No sore throat, no difficulty swallowing. No runny nose. Denies any chest pain, no shortness of breath, has some occasional dry cough, which got better after treating with antibiotics. Denies any abdominal pain and has few episodes of diarrhea. Normal bladder movements. No fever, chills. Currently, resting comfortably and hemodynamically stable. ALLERGIES: No known drug allergies. PAST MEDICAL HISTORY: As mentioned above. PAST SURGICAL HISTORY: Hysterectomy. MEDICATIONS: None. FAMILY HISTORY: Significant for Alzheimer dementia and prostate cancer in father. REVIEW OF SYMPTOMS: As per HPI. Rest of review of symptoms negative. PHYSICAL EXAMINATION: GENERAL: The patient is old and frail, not in distress. VITAL SIGNS: Temperature 36.8, pulse 81, respiration rate 21, blood pressure 156/95, oxygen 95% on room air. HEENT: No pallor, no icterus. Pupils equal, round and reactive to light. NECK: No JVD, no neck masses, no carotid bruits. CARDIOVASCULAR: S1, S2 heard, regular rate and rhythm, no murmur, no gallop. RESPIRATORY SYSTEM: Normal AP diameter. No accessory muscle use. No wheezing, no crackles. ABDOMEN: Soft, bowel sounds present. Nontender. No distention, no guarding, no rigidity. CENTRAL NERVOUS SYSTEM: Cranial nerves II-XII grossly intact. Nonfocal. EXTREMITIES: No edema, no erythema. LABORATORY STUDIES: WBC 4.18, hemoglobin 10.4, hematocrit 29.8, and platelets 137. PT 11.3, INR 1.1, APTT 22.1. Sodium 130, potassium 2.9, chloride 105, bicarbonate 27, BUN 19, creatinine 1.1, serum glucose 101, calcium 9.1. Total bilirubin 0.9, direct bilirubin 0.2, AST 19, ALT 20, alkaline phosphatase 113. Troponin 1 less than 0.015. TSH 2.1, lipase 248. PT 11.3, INR 1.1. Urinalysis pending. IMAGING DATA: CT of the head, no acute intracranial findings seen. Chest x-ray - interstitial thickening, finding of uncertain chronicity, this could be related to mild pulmonary vascular congestion, chronic interstitial lung disease. EKG - normal sinus rhythm with rate in the 70s, questionable T-wave inversions in lateral leads. ASSESSMENT AND PLAN: This is an 87-year-old female presents with generalized weakness, some nausea, vomiting and diarrhea. 1. Generalized weakness, nausea, vomiting, diarrhea after starting with a treatment for bronchitis with antibiotics, could be gastroenteritis. Will do the KUB, will follow the stool cultures and a stool for C. diff. Her weakness could be from hypokalemia, will replace the potassium. Will be placed on full liquid diet for now and monitor on the medical floor. PT/OT when more stable. 2. Questionable echocardiogram changes. We will follow the echocardiogram. 3. Deep venous thrombosis prophylaxis, sequential compression devices and heparin subQ. DISPOSITION: Admit to medical floor. Expect PT, OT prior to discharge. Social Service to help with discharge planning. Hospital Course This is an 87 year old female with no significant PMH with recent bronchitis, presents with generalized weakness and decreased PO intake Decreased PO intake Dyspepsia/Gastritis 07/12 will d/c on Protonix she can have colace for constipation following diet instructions: FULLY UPRIGHT for all meals and for 20-30 minutes after intake; keep head of bed elevated AT LEAST 30 degrees at all times--even sleep -Alternate solids with liquids and eat small amounts more frequently instead of three large meals; avoid icy cold beverages and drink warm beverages with meals -Give medications in a carrier (eg., puding, apple sauce, yogurt, etc.) -SLIPPERY DIET: choose loose, moist, slippery foods; avoid dry, thick, doughy foods; use condiments liberally to make foods slippery 07/11 appreciate GI input will check an upper GI series, and repeat KUB GI cocktail added continue Protonix and Carafate 07/10 possible gastritis secondary to recent abx. use? will try some Carafate and Protonix patient has not had a BM in two days, she usually goes daily; will try one dose of Dulcolax check C. diff monitor her PO intake Generalized Weakness I believe this is likely due to her decreased PO intake will order for PT/OT potassium replaced gentle IV hydration DVT ppx subq heparin FULL CODE Total time spent on discharge = 25 minutes This includes examination of the patient, discharge planning, medication reconciliation, and communication with other providers. Discharge Instructions Please follow-up with your primary care physician in 1-2 weeks * You will be discharged on Protonix * You can take over the counter Maalox * Colace is for your constipation For your diet; please use the following instructions: * FULLY UPRIGHT for all meals and for 20-30 minutes after intake; keep head of bed elevated AT LEAST 30 degrees at all times--even sleep -Alternate solids with liquids and eat small amounts more frequently instead of three large meals; avoid icy cold beverages and drink warm beverages with meals -Give medications in a carrier (eg., pudding, apple sauce, yogurt, etc.) -SLIPPERY DIET: choose loose, moist, slippery foods; avoid dry, thick, doughy foods; use condiments liberally to make foods slippery
[2017-07-12 15:53] VITALS: BP 133/78; PULSE 78; TEMP 36.8; O2SAT 92
[2017-07-12 16:17] VITALS: BP 133/78; PULSE 78; TEMP 36.8; O2SAT 92
--- NOTE | 2017-07-12 17:02 | NUR ---
Patient is discharged home with home health per MD orders. Reviewed discharge with and daughter who are primary caregviers. Both stated have no questions. Emphasized new medications, stopped medications, medications still needs to take tnight, aspiration precuations, follow up appointments. IV SITE removed, dressing c/d/i. Pts family had all belongings at time of discharge including glasses and sicharge paperwork, clothes/shoes. Family providing transport. No further needs assessed at [facility]. This RN took paitent to main entrance via wheelchair and assisted into vehichle.
[2017-07-12] MEDS ORDERED: DOCUSATE SODIUM 100 MG CAP PO SCH (20:00)
--- NOTE | 2017-07-13 08:03 | NUR ---
Case Management- Discharge instructions faxed to home nursing agency.
== END 2017-07-12 18:00 | disposition home health service (06) | DRG 392 ==
LOC: EDBD 10:21 → C.EDC 10:22 → C.MS4W 14:52 → ENRESERV 15:31
PROVIDERS: ADMIT Hospitalist; ATTEND Family Medicine
DX: K29.70 Gastritis, unspecified, without bleeding (principal); T36.95XA Adverse effect of unspecified systemic antibiotic, initial encounter; I10 Essential (primary) hypertension; J40 Bronchitis, not specified as acute or chronic; E87.6 Hypokalemia; Z85.41 Personal history of malignant neoplasm of cervix uteri; K59.00 Constipation, unspecified; K22.4 Dyskinesia of esophagus; Y92.019 Unspecified place in single-family (private) house as the place of occurrence of the external cause